=== PATIENT | male | born 1980 | race Caucasian/White ===

== ENCOUNTER 2017-02-02 17:21 | Emergency (ER) | payer OTHER ==
[~2017-02-02] VITALS: Ht 170.2 cm; Wt 99.8 kg
[~2017-02-02 17:21] MED LIST: BUPROPION XL150 MG PO; KLONOPIN0.5 M1 PO; LEXAPRO10 M1 PO; LOSARTAN POTASS50 M1 PO; MONTELUKAST SOD10 M1 PO; TRICOR145 M1 PO
--- NOTE | 2017-02-02 19:01 | ED GENERAL ADULT ---
History of Present Illness General Chief Complaint: Psychiatric Related Complaint Stated Complaint: SENT BY OUTPATIENT PSY FOR MED EVAL Source: patient, family Exam Limitations: no limitations Vital Signs & Intake/Output Vital Signs & Intake/Output Vital Signs Date Time Temp Pulse Resp B/P Pulse O2 O2 Flow FiO2 Ox Delivery Rate 02/02 2057 Room Air 02/02 2041 96.0 93 16 132/89 97 Room Air 02/02 1725 97.6 99 16 133/88 98 Room Air ED Intake and Output 02/03 0000 02/02 1200 Intake Total Output Total Balance Patient 220 lb Weight Allergies Coded Allergies: poison gunnar extract (HIVES 02/02/17) shellfish derived (DIARRHEA 02/02/17) Reconcile Medications Albuterol Sulfate (Proair Hfa) 90 MCG HFA.AER.AD 2 PUF INH PRN ASTHMA ( Reported) Bupropion HCl (Forfivo XL) 450 MG TAB.ER.24H 1 TAB PO DAILY MENTAL HEALTH ( Reported) Dextroamphetamine/Amphetamine (Adderall 30 MG Tablet) 30 MG TABLET 1 TAB PO BID ADD/ADHD (Reported) Diazepam 10 MG TABLET 2 TAB PO QHS SLEEP (Reported) Diphenhydramine HCl (Benadryl) 25 MG CAPSULE 2 CAP PO BID ALLERGIES (Reported ) Fenofibrate Nanocrystallized (Tricor) 145 MG TABLET 1 TAB PO DAILY HLD Fluticasone Propionate (Flovent Hfa) (Unknown Strength) AER.W.ADAP (Unknown Dose) INH 4XDAILY ASTHMA (Reported) Gabapentin (Neurontin) 300 MG CAPSULE 2 CAP PO TID MENTAL HEALTH (Reported) Losartan Potassium 50 MG TABLET 1 TAB PO DAILY HTN Mometasone Furoate (Nasonex) 50 MCG SPRAY.PUMP 2 SPRAY NASB DAILY ALLERGIES ( Reported) Montelukast Sodium 10 MG TABLET 1 TAB PO DAILY ASTHMA Sertraline HCl 100 MG TABLET 1 TAB PO DAILY MENTAL HEALTH (Reported) Triage Note: PT SENT HERE FOR MED EVAL. PT STATES HIS DAD LAST EVENING AND PT WAS GIVEN VALIUM BY OUT PT PSYCH. PT STATES HE IS HAVING HORRIBLE ANXIETY FEELS LIKE HE CAN'T CATCH HIS BREATH. PT SWELLING OF HIS UPPER EYE LIDS AND STATES THAT IS BECAUSE HE HASN'T STOPPED CRYING SINCE YESTERDAY. PT TOLD IOP THAT HE NEEDS SOMETHING STRONGER FOR HIS ANXIETY SO HE CAN MAKE IT THROUGHT THE NEXT FEW DAYS. PT DROWSY IN TRIAGE. Triage Nurses Notes Reviewed? yes HPI: Patient is a 36-year-old male brought in by his for evaluation of uncontrollable crying. Patient's father within the past 24 hours. Patient has been crying uncontrollably since then. Patient was prescribed Valium 10 mg tabs by his psychiatrist, reports that he was taking 2 at a time with no improvement. . Symptoms are currently severe. Patient denies suicidal ideation, homicidal ideation, hallucinations, illicit substance ingestion. Patient also reports bilateral upper eyelid edema onset today. Patient reports that he has taken Valium previously, no other change in medications or skin contacts. (BONITA MACIAS) Past History Travel History Traveled to [place] past 21 day No Medical History Any Pertinent Medical History? see below for history Cardiovascular: hypertension Psychiatric: anxiety, depression Surgical History Surgical History: N Psychosocial History What is your primary language Maltese Tobacco Use: Current Daily Use Daily Tobacco Use Amount/Type: => 5 Cigarettes daily ETOH Use: occasional use Illicit Drug Use: denies illicit drug use Family History Hx Contributory? No (BONITA MACIAS) Review of Systems Review of Systems Constitutional: Denies: chills, fever. EENTM: Reports: no symptoms. Respiratory: Reports: short of breath (intermittent). Denies: cough. Cardiovascular: Reports: chest pain (intermittent, none currently). GI: Reports: nausea. Denies: vomiting. Genitourinary: Reports: no symptoms. Musculoskeletal: Reports: no symptoms. Skin: Reports: no symptoms. Neurological/Psychological: Reports: no symptoms. Hematologic/Endocrine: Reports: no symptoms. Immunologic/Allergic: Reports: no symptoms. (BONITA MACIAS) Physical Exam Physical Exam General Appearance: well developed/nourished, alert, awake Head: bilateral upper eyelid edema Eyes: Bilateral: PERRL, EOMI. Ears, Nose, Throat: hearing grossly normal Neck: normal inspection, supple, full range of motion Respiratory: normal breath sounds, chest non-tender, no respiratory distress, lungs clear Cardiovascular: regular rate/rhythm Gastrointestinal: soft, non-tender Back: normal inspection, normal range of motion Extremities: normal inspection, normal capillary refill, normal range of motion, no edema Neurologic/Psych: awake, alert, patient hyperventilating, tearful, actively crying. No suicidal or homicidal ideation. No apparent hallucinations. Skin: warm/dry Lymphatic: no anterior cervical anali Core Measures ACS in differential dx? No CVA/TIA Diagnosis: No Severe Sepsis Present: No Septic Shock Present: No (BONITA MACIAS) Progress Differential Diagnoses I considered the following diagnoses in my evaluation of the patient: Grief reaction, depression, anxiety, psychosis Plan of Care: Orders Procedure Date/time Status URINE DRUGS OF ABUSE 02/02 1907 Complete ETHANOL 02/02 1907 Complete COMPREHENSIVE METABOLIC PANEL 02/02 1907 Complete CBC WITHOUT DIFFERENTIAL 02/02 1907 Complete ED CRISIS PSYCH CONSULT 02/02 1907 Active Laboratory Tests 02/02/171953: Urine Opiates Screen < 100.00, Methadone Screen < 40, Barbiturate Screen < 60, Ur Phencyclidine Scrn < 6.00, Amphetamines Screen 1163 H, U Benzodiazepines Scrn > 800 H, Urine Cocaine Screen < 50, Urine Cannabis Screen > 80.00 H 02/02/171916: Anion Gap 11, Estimated GFR > 60, BUN/Creatinine Ratio 8.3, Glucose 118 H, Calcium 10.0, Total Bilirubin 0.4, AST 21, ALT 38, Alkaline Phosphatase 47, Total Protein 7.0, Albumin 4.2, Globulin 2.8, Albumin/Globulin Ratio 1.5, CBC w Diff NO MAN DIFF REQ, RBC 4.31 L, MCV 92.3, MCH 30.6, RDW 14.4, MPV 7.5, Gran % 51.7, Lymphocytes % 34.0, Monocytes % 9.9 H, Eosinophils % 3.9, Basophils % 0.5 , Absolute Granulocytes 4.1, Absolute Lymphocytes 2.7, Absolute Monocytes 0.8 H , Absolute Eosinophils 0.3, Absolute Basophils 0, PUBS MCHC 33.1, Serum Alcohol < 10.0 Patient evaluated by emt i/85: Per on-call psychiatrist recommendation is to take 100 mg of Seroquel tonight, do not take his regular dose of Seroquel and contact his psychiatrist tomorrow for further medication dosing instructions. (BONITA MACIAS) Initial ED EKG: none (BONITA MACIAS) Departure Departure Time of Disposition: 2128 Disposition: HOME OR SELF CARE Condition: Stable Clinical Impression Primary Impression: Grief reaction Referrals: UNKNOWN (PCP/Family) Additional Instructions: Take 100 mg of Seroquel(Quetiapine) tonight. Do not take your regular dose. Mom morning contact your psychiatrist for further dosing/medication instructions Departure Forms: Customer Survey General Discharge Information (BONITA MACIAS) PA/HEAVY EQUIPMENT MECHANIC Co-Sign Statement Statement: ED Attending supervision documentation- [] I saw and evaluated the patient. I have also reviewed all the pertinent lab results and diagnostic results. I agree with the findings and the plan of care as documented in the PA's/HEAVY EQUIPMENT MECHANIC's documentation. [X] I have reviewed the ED Record and agree with the PA's/HEAVY EQUIPMENT MECHANIC's documentation. [] Additions or exceptions (if any) to the PAs/HEAVY EQUIPMENT MECHANIC's note and plan are summarized below: [] (YURIDIA CARVER,PRINCE) Critical Care Note Critical Care Note Critical Care Time: non-applicable (BONITA MACIAS)
[2017-02-02 19:28] LABS: ABSOLUTE BASOPHIL COUNT 0 /CUMM (0.0-0.2); ABSOLUTE EOSINOPHIL COUNT 0.3 /CUMM (0.0-0.7); ABSOLUTE GRANULOCYTE CT 4.1 /CUMM (1.4-6.5); ABSOLUTE LYMPH COUNT 2.7 /CUMM (1.2-3.4); ABSOLUTE MONOCYTE COUNT 0.8 /CUMM (0.10-0.60); BASOPHIL % 0.5 % (0.0-2.0); EOSINOPHIL % 3.9 % (0-5); GRANULOCYTE % 51.7 % (42.2-75.2); HEMATOCRIT 39.8 % (42-52); MEAN CORPUSCULAR HGB 30.6 PG (27.0-31.0); MEAN CORPUSCULAR HGB CONC 33.1 G/DL (33.0-37.0); MEAN CORPUSCULAR VOLUME 92.3 FL (80.0-94.0); MEAN PLATELET VOLUME 7.5 FL (7.4-10.4); PLATELET COUNT 323 /CUMM (130-400); RBC DISTRIBUTION WIDTH 14.4 % (11.5-14.5); RED BLOOD CELL CT 4.31 /CUMM (4.70-6.10); WHITE BLOOD CELL COUNT 7.9 /CUMM (4.8-10.8)
[2017-02-02] MEDS ORDERED: FORFIVO XL450 MG PO (20:35)
[2017-02-02] MEDS ORDERED: FLOVENT HFA12 GM INH (20:36)
[2017-02-02] MEDS ORDERED: PROAIR HFA8.5 GM INH (20:36)
[2017-02-02] MEDS ORDERED: ADDERALL 30 MG30 MG PO (20:37)
[2017-02-02] MEDS ORDERED: NEURONTIN300 M1 PO (20:37)
[2017-02-02] MEDS ORDERED: SERTRALINE HCL100 MG PO (20:37)
[2017-02-02] MEDS ORDERED: DIAZEPAM10 M1 PO (20:38)
[2017-02-02] MEDS ORDERED: NASONEX17 GM NASB (20:39)
[2017-02-02] MEDS ORDERED: BENADRYL25 MG PO (20:39)
[2017-02-02 20:41] VITALS: BP 132/89
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
== END 2017-02-02 21:35 ==
LOC: ERH 17:21
PROVIDERS: Physician Assistant
DX: F43.20 Adjustment disorder, unspecified (principal)
CPT/HCPCS: 80307; 96372; G0463; G0480